=== PATIENT | male | born 1980 | race Two or more races ===

== ENCOUNTER 2017-10-14 18:11 | Emergency (ER) | payer OTHER ==
[2017-10-14] MEDS ORDERED: Diphtheria,Pertussis(Acell),Tetanus Vaccine 0.5 ML Syringe IM ONE (18:39)
[2017-10-14] MEDS ORDERED: Lidocaine 1% 20 ML MDV INJECT ONE (18:39)
--- NOTE | 2017-10-14 19:13 | EDM.PDOC ---
ED HPI GENERAL MEDICAL PROBLEM - General Chief Complaint: Upper Extremity Injury/Pain Stated Complaint: "I HURT MY FINGER" Time Seen by Provider: 10/14/17 18:35 Source of Information: Reports: Patient History Limitations: Reports: Language Barrier (minimal libyan) - History of Present Illness INITIAL COMMENTS - FREE TEXT/NARRATIVE: Gerson is a 37 yo male who presented to ER with a laceration to his right pinky finger. he states he was working with a hoove cliff and the cow ended up moving getting his finger in the cliff. He states his last tetanus was 5 years ago in [place]. Speaks minimal libyan. He has discomfort with bending of finger. Onset: Today - Related Data Allergies Allergy/AdvReac Type Severity Reaction Status Date / Time No Known Allergies Allergy Verified 10/14/17 18:19 Home Meds: Home Meds . [No Known Home Meds] 10/14/17 [History] Past Medical History - Past Health History Medical/Surgical History: Denies Medical/Surgical History Social & Family History - Tobacco Use Smoking Status *Q: Current Every Day Smoker Years of Tobacco use: 10 Packs/Tins Daily: 1 Review of Systems - Review of Systems Review Of Systems: ROS reveals no pertinent complaints other than HPI. ED EXAM, GENERAL - Physical Exam Exam: See Below Exam Limited By: Language Barrier General Appearance: Alert, No Apparent Distress Extremities: Limited Range of Motion (ROM limited d/t discomfort. ), Other ( 2.5cm laceration to lateral aspect of the 5th digit, right hand. Mild bleeding noted. Small abrasion to medial aspect as well. ) Neurological: No Motor/Sensory Deficits Skin Exam: Ecchymosis, Wound/Incision ED TRAUMA EXTREMITY PROCEDURES - Laceration/Wound Repair Right Lateral Finger Lac/Wound Length In cm: 2.5 Appearance: Subcutaneous, Clean Distal NVT: Neuro & Vascular Intact Anesthetic Type: Local Local Anesthesia - Lidocaine (Xylocaine): 1% Plain Local Anesthetic Volume: 2cc Skin Prep: Chlorhexidine (Hibiciens), Providone-Iodine (Betadine) Exploration/Debridement/Repair: Wound Explored, In a Bloodless Field, Explored to Base, Minimal Debridement, No Foreign Material Found Closed With: Sutures Suture Size: other (5-0) # of Sutures: 6 Suture Type: Nylon, Simple Course - Vital Signs Last Recorded V/S: Last Vital Signs Temp 96.8 F 10/14/17 18:29 Pulse 84 10/14/17 18:29 Resp 20 10/14/17 18:29 BP 124/76 10/14/17 18:29 Pulse Ox 98 10/14/17 18:29 - Orders/Labs/Meds Orders: Active Orders 24 hr Category Date Time Status Vaccines to be Administered [RC] PER UNIT ROUTINE Care 10/14/17 18:41 Active Fingers Fifth Digit Lt F4 [CR] Routine Exams 10/14/17 Taken Meds: Medications Discontinued Medications Generic Name Dose Route Start Last Admin Trade Name [place] PRN Reason Stop Dose Admin Diphtheria/Tetanus/Acell Pertussis 0.5 ml 10/14/17 18:39 10/14/17 18:45 Adacel IM 10/14/17 18:40 0.5 ml .ONCE ONE Administration Lidocaine HCl 20 ml 10/14/17 18:39 10/14/17 18:46 Xylocaine 1% INJECT 10/14/17 18:40 20 ml ONETIME ONE Administration Neomycin/Polymyxin/Bacitracin Confirm 10/14/17 18:56 Triple Antibiotic Oint Administered 10/14/17 18:57 Dose 1 each .ROUTE .STK-MED ONE Departure - Departure Time of Disposition: 19:14 Disposition: Home, Self-Care 01 Condition: Good Clinical Impression: Laceration of little finger Qualifiers: Encounter type: initial encounter Damage to nail status: without damage Foreign body presence: without foreign body Laterality: right Qualified Code(s) : S61.216A - Laceration without foreign body of right little finger without damage to nail, initial encounter - Discharge Information Instructions: Finger Fracture, [id number], Laceration Care, Adult Additional Instructions: 1) Keep finger splint in place 2) Wound clean and dry for 48 hrs. 3) Alternate Tylenol with ibuprofen every 3-4 hours as needed for discomfort. Recommended dose on bottle 4) Return to clinic in 10 days for suture removal 5) Watch for signs of infection. Increased redness, pain, drainage, etc.. If any signs appear, advise returning immediately. 6) Call if any questions or concerns, [phone] 7) Tetanus was updated today. - Problem List & Annotations (1) Laceration of little finger SNOMED Code(s): 137205333 Code(s): S61.218A - LACERATION W/O FB OF FINGER W/O DAMAGE TO NAIL, INIT Status: Acute Current Visit: Yes Qualifiers: Encounter type: initial encounter Damage to nail status: without damage Foreign body presence: without foreign body Laterality: right Qualified Code (s): S61.216A - Laceration without foreign body of right little finger without damage to nail, initial encounter - Problem List Review Problem List Initiated/Reviewed/Updated: Yes - My Orders Last 24 Hours: My Active Orders 10/14/17 Fingers Fifth Digit Lt F4 [CR] Routine 10/14/17 18:41 Vaccines to be Administered [RC] PER UNIT ROUTINE - Assessment/Plan Last 24 Hours: My Active Orders 10/14/17 Fingers Fifth Digit Lt F4 [CR] Routine 10/14/17 18:41 Vaccines to be Administered [RC] PER UNIT ROUTINE Plan: See additional instructions.
[2017-10-14] MEDS ORDERED: Bacitracin/Neomycin/Polymyxin B Oint 28.4 GM Tube TOP ONE (19:14)
[2017-10-14] MEDS: Bacitracin/Neomycin/Polymyxin B Oint 0.9 GM U/D Packet ONE ×2 (19:15)
== END 2017-10-14 19:20 | disposition home or self-care (01) ==
LOC: CC.ED 18:11
DX: S61.216A Laceration without foreign body of right little finger without damage to nail, initial encounter (principal); Z23 Encounter for immunization; F17.210 Nicotine dependence, cigarettes, uncomplicated; W27.8XXA Contact with other nonpowered hand tool, initial encounter; Y93.K9 Activity, other involving animal care
CPT/HCPCS: 12001; 73140-F4; 90471; 90715; 99283